=== PATIENT | female | born 2000 | race Two or more races ===

== ENCOUNTER → 2020-07-23 15:49 | Outpatient (BNVA) | payer OTHER, SELFPAY | PROVIDERS: PCP Pediatrics; Visit Provider Student in an Organized Health Care Education/Training Program | DX: Z76.89 Persons encountering health services in other specified circumstances (principal) ==

== ENCOUNTER 2020-07-23 16:29 | Outpatient (REF) | payer OTHER, SELFPAY ==
[2020-07-23 17:21] LABS: MANUAL DIFF FLAG NO
[2020-07-23 17:24] LABS: Basophils Percent Auto 0.2 % (0-2); Eosinophils Absolute Auto 0.1 X10*3/uL (0.0-0.4); Eosinophils Percent Auto 1.5 % (0-4); Hematocrit 31.9 % (37-47); Hemoglobin 9.6 g/dl (12.0-16.0); Imm Gran Abs Auto 0.01 X10*3/uL (0.00-0.03); Imm Gran Pct Auto 0.2 % (0.0-0.4); Lymphocytes Absolute Auto 1.6 X10*3/uL (1.2-4.9); Lymphocytes Percent Auto 28.6 % (20-40); Mean Corpuscular HGB Conc 30.1 g/dl (31.0-35.0); Mean Corpuscular Hemoglobin 24.2 pg (27.0-33.0); Mean Corpuscular Volume 80.4 fL (80-98); Mean Platelet Volume 11.5 fL (9.4-12.3); Monocytes Absolute Auto 0.5 X10*3/uL (0.1-1.2); Monocytes Percent Auto 9.9 % (2-11); Neutrophils Absolute Auto 3.3 X10*3/uL (2.0-8.3); Neutrophils Percent Auto 59.6 % (45-73); Platelet Count 246 X10*3/uL (160-400); Red Blood Count 3.97 X10*6/uL (4.20-5.50); Red Cell Distribution Width 13.9 % (11.0-16.0); White Blood Count 5.5 X10*3/uL (4.8-10.8)
[2020-07-23 17:36] LABS: Glucose Urine UA NEG (NEG); Leukocyte Esterase Urine 1+ (NEG); Nitrite Urine NEG (NEG); Urine Blood NEG (NEG); Urine Ketones NEG (NEG); Urine Protein NEG (NEG-TRACE)
[2020-07-23 17:38] LABS: Appearance Urine CLEAR; Color Urine YELLOW
[2020-07-23 17:48] LABS: Bacteria Urine 1+ /LPF; RBC Urine 0 /HPF (0); Squamous Epithelial Cell Urine 1+ /LPF
[2020-07-23 17:50] LABS: Alanine Aminotransferase 14 U/L (0-31); Albumin Level 4.3 g/dL (3.5-5.0); Alkaline Phosphatase 38 U/L (39-117); Anion Gap 12 (12-20); Aspartate Amino Transferase 16 U/L (5-31); Bilirubin Total 0.3 mg/dL (0.0-1.0); Blood Urea Nitrogen 14 mg/dL (9-16); C Reactive Protein 0.02 mg/dL (< or = 0.50); Calcium 8.7 mg/dL (8.4-10.2); Carbon Dioxide 27 mmol/L (22-29); Chloride 105 mmol/L (96-108); Estimated Glomerular Filt Rate > 60; Glucose Random 78 mg/dL (60-115); Potassium 4.1 mmol/l (3.3-5.1); Rheumatoid Factor < 15.0 IU/mL (<15.0); Sodium 140 mmol/L (135-145); Total Protein 7.4 g/dL (6.5-8.0)
[2020-07-23 19:20] LABS: Erythrocyte Sedimentation Rate 23 MM/HR (0-20)
[2020-07-24 09:12] LABS: Thyroglobulin Antibodies 4 IU/mL (< or = 1); Thyroid Peroxidase Antibodies 1 IU/mL (<9)
[2020-07-24 13:33] LABS: Anti DNA DS Antibody 22 IU/mL; Antibody to SS-A Antigen 1.6 POS AI (<1.0 NEG); Antibody to SS-B Antigen <1.0 NEG AI (<1.0 NEG); SM/Ribonucleoprotein Ab <1.0 NEG AI (<1.0 NEG); Smith Protein <1.0 NEG AI (<1.0 NEG)
[2020-07-24 15:08] LABS: Cyclic Citrullinated Peptide <16 UNITS
[2020-07-24 21:23] LABS: Anti Nuclear Antibody Screen POSITIVE (NEGATIVE)
[2020-07-25 12:33] LABS: Complement C3 92 mg/dL (83-193)
== END 2020-07-23 16:30 | disposition home or self-care (01) ==
LOC: HO.LAB 16:29
PROVIDERS: PCP Pediatrics; Visit Provider Student in an Organized Health Care Education/Training Program
DX: R76.8 Other specified abnormal immunological findings in serum (principal)
CPT/HCPCS: 36415; 80053; 81001; 85025; 85652; 86038; 86039; 86140; 86160; 86200; 86225; 86235; 86376; 86431; 86800

== ENCOUNTER → 2020-08-07 15:36 | Outpatient (BNVA) | payer OTHER, SELFPAY | PROVIDERS: Visit Provider Student in an Organized Health Care Education/Training Program | DX: Z76.89 Persons encountering health services in other specified circumstances (principal) ==

== ENCOUNTER 2021-02-14 09:06 | Outpatient (REF) | payer OTHER, MEDICAID, SELFPAY ==
[2021-02-14 10:17] LABS: MANUAL DIFF FLAG NO
[2021-02-14 10:21] LABS: Basophils Percent Auto 0.3 % (0-2); Eosinophils Absolute Auto 0.1 X10*3/uL (0.0-0.4); Eosinophils Percent Auto 1.6 % (0-4); Hematocrit 37.4 % (37-47); Hemoglobin 12.4 g/dl (12.0-16.0); Imm Gran Abs Auto 0.01 X10*3/uL (0.00-0.03); Imm Gran Pct Auto 0.1 % (0.0-0.4); Lymphocytes Absolute Auto 1.5 X10*3/uL (1.2-4.9); Lymphocytes Percent Auto 21.8 % (20-40); Mean Corpuscular HGB Conc 33.2 g/dl (31.0-35.0); Mean Corpuscular Hemoglobin 29.8 pg (27.0-33.0); Mean Corpuscular Volume 89.9 fL (80-98); Mean Platelet Volume 12.1 fL (9.4-12.3); Monocytes Absolute Auto 0.7 X10*3/uL (0.1-1.2); Monocytes Percent Auto 10.6 % (2-11); Neutrophils Absolute Auto 4.4 X10*3/uL (2.0-8.3); Neutrophils Percent Auto 65.6 % (45-73); Platelet Count 181 X10*3/uL (160-400); Red Blood Count 4.16 X10*6/uL (4.20-5.50); Red Cell Distribution Width 12.5 % (11.0-16.0); White Blood Count 6.8 X10*3/uL (4.8-10.8)
[2021-02-14 10:52] LABS: Glucose Urine UA NEG (NEG); Leukocyte Esterase Urine NEG (NEG); Nitrite Urine NEG (NEG); Specific Gravity - Urine 1.025 (1.005-1.025); Urine Blood NEG (NEG); Urine Ketones NEG (NEG); Urine Protein NEG (NEG-TRACE)
[2021-02-14 10:53] LABS: Appearance Urine CLEAR; Color Urine YELLOW
[2021-02-14 10:56] LABS: Alanine Aminotransferase 9 U/L (0-31); Albumin Level 4.2 g/dL (3.5-5.0); Alkaline Phosphatase 35 U/L (39-117); Anion Gap 12 (12-20); Aspartate Amino Transferase 13 U/L (5-31); Bilirubin Total 0.4 mg/dL (0.0-1.0); Blood Urea Nitrogen 14 mg/dL (9-16); C Reactive Protein 0.04 mg/dL (< or = 0.50); Calcium 9.5 mg/dL (8.4-10.2); Carbon Dioxide 25 mmol/L (22-29); Chloride 107 mmol/L (96-108); Estimated Glomerular Filt Rate > 60; Glucose Random 86 mg/dL (60-115); Potassium 4.2 mmol/L (3.3-5.1); Sodium 140 mmol/L (135-145)
[2021-02-14 11:01] LABS: Bacteria Urine 2+ /LPF; Mucus Urine 1+ /LPF; RBC Urine 0 /HPF (0); Squamous Epithelial Cell Urine 2+ /LPF; WBC Urine 0-2 /HPF (0-4)
[2021-02-14 11:13] LABS: Erythrocyte Sedimentation Rate 14 MM/HR (0-20)
[2021-02-15 14:42] LABS: Anti DNA DS Antibody 13 IU/mL; SM/Ribonucleoprotein Ab <1.0 NEG AI (<1.0 NEG); Scleroderma 70 Antibody <1.0 NEG AI (<1.0 NEG); Smith Protein <1.0 NEG AI (<1.0 NEG)
[2021-02-17 11:37] LABS: Complement C3 51 mg/dL (83-193)
== END 2021-02-14 09:07 | disposition home or self-care (01) ==
LOC: HO.LAB 09:06
PROVIDERS: PCP Pediatrics; Visit Provider Student in an Organized Health Care Education/Training Program
DX: R76.8 Other specified abnormal immunological findings in serum (principal)
CPT/HCPCS: 36415; 80053; 81001; 85025; 85652; 86140; 86160; 86225; 86235

== ENCOUNTER → 2021-03-07 14:23 | Outpatient (BNVA) | payer OTHER, SELFPAY | PROVIDERS: PCP Pediatrics; Visit Provider Student in an Organized Health Care Education/Training Program ==